=== PATIENT | female | born 1995 | race African-American/Black ===

== ENCOUNTER 2017-06-14 18:39 | Inpatient (IN) | payer MEDICAID ==
[~2017-06-14] VITALS: Ht 162.6 cm; Wt 103.9 kg
--- NOTE | ~2017-06-14 | CN ---
PATIENT NAME:QUENTIN VAUGHN MEDICAL RECORD: [id number] : [birth year] LOCATION:D.MS [facility]223Emerita ADMIT DATE: 06/15/17 ACCOUNT: [id number] CONSULTING PHYSICIAN: LYNN CHERRY MD REFERRING PHYSICIAN: IRENE DOVER MD DATE OF CONSULTATION: 06/15/2017 HISTORY OF PRESENT ILLNESS: A 21-year-old female with a history of lupus, transferred from outside facility for higher level of care. She is status post laparoscopic cholecystectomy. She underwent an outside hospital CTA, which was negative on 06/06/2017. She has had a fairly classic pleuritic chest pain with deep inspiration, pain with lying on her back, and has been tachycardic as well. We are asked to see her concerning her cardiovascular status. PAST MEDICAL HISTORY: Includes; 1. Lupus. 2. Recent cholecystectomy. SOCIAL HISTORY: Works as a nurse. She is a nonsmoker. No illicit drug use. ALLERGIES: None known. PHYSICAL EXAMINATION: GENERAL: Pleasant female, in some distress. VITAL SIGNS: Currently, pulse 117, blood pressure 133/85. HEENT: Normocephalic, atraumatic. NECK: No bruits are noted. HEART: Regular. I think there is one component of rub heard best at the point of maximal impulse. LUNGS: Decreased air excursion. ABDOMEN: Soft, nontender. EXTREMITIES: Pulses 2+. No edema. DIAGNOSTIC DATA: Echocardiographic study reviewed. This shows normal LV function, no significant pericardial effusion. 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 No evidence of pericardial effusion. She has been noted to have pleural effusion. We will give a low-dose Toradol renal adjusted given her mildly elevated creatinine. Further recommendations based on above. TRANSINT:[id number] Voice Confirmation ID: [id number] DOCUMENT ID: [id number] LYNN CHERRY MD at 0804 CC: [id number] DICTATION DATE: 06/15/17 164 SERVICE DESK MANAGER: 06/15/171911 ADM IN [facility] [address] [place] [address]
--- NOTE | ~2017-06-14 | CN ---
PATIENT NAME:QUENTIN VAUGHN MEDICAL RECORD: [id number] : 93 LOCATION:D.MS Casey2225 ADMIT DATE: 06/15/17 ACCOUNT: [id number] CONSULTING PHYSICIAN: CARMEN CHACKO MD REFERRING PHYSICIAN: IRENE DOVER MD DATE OF CONSULTATION: 06/15/2017 CONSULT REQUESTING PHYSICIAN: Dr. Dover. REASON FOR CONSULTATION: Acute hypoxic respiratory failure, questionable PE with elevated D-dimer. HISTORY OF PRESENT ILLNESS: Ms. Vaughn is a 21-year-old -B[place]ut[place] female. She underwent a laparoscopic cholecystectomy at [facility]. She was readmitted with shortness of breath and fever and pleuritic type of chest pain. She was treated with IV antibiotics. The patient was having CTA over there, which did not show any pulmonary embolism. The repeat D-dimer is about 20 over here. She is still complaining of shortness of breath and pleuritic type of chest pain mainly on the left side radiating to her back. There are no night sweats and the patient is feeling very weak and lethargic. REVIEW OF SYSTEMS: As in history of present illness. PAST MEDICAL HISTORY: 1. Questionable SLE. 2. Gastroesophageal reflux disease. 3. History of pneumonia. 4. History of blackout in the past. PAST SURGICAL HISTORY: 1. Cholecystectomy. 2. Exploratory laparotomy. ALLERGIES: No known drug allergies. MEDICATIONS: Smart Wire Grid is reviewed. PERSONAL SOCIAL HISTORY: The patient is a nonsmoker, nondrinker. FAMILY HISTORY: Significant for cardiovascular disease and diabetes. PHYSICAL EXAMINATION: GENERAL: Now, the patient sitting in bed. She is complaining of pain. VITAL SIGNS: The blood pressure is 133/85, pulse is 117, respiration is 20, temperature is 101.7, and SpO2 is 91% on 2 liters nasal cannula. HEENT: Conjunctivae are pink. Sclerae not icteric. NECK: Neck is supple. No JVD. CHEST: There are bilateral crackles. No wheezing. HEART: Rate and rhythm regular. Normal sound. No murmur. ABDOMEN: Abdomen is soft, tender on deep palpation. No guarding, no rigidity. RECTAL: Deferred. EXTREMITIES: No cyanosis, no clubbing, and no pedal edema. LABORATORY DATA: CBC: WBC 10.4, hemoglobin 8.5, hematocrit 26.6, and the platelet count 359. Chemistry: Sodium 133, potassium 3.8, BUN is 11, CONSULT REPORT [id number] QUENTIN VAUGHN creatinine 1.7, and glucose 97. ABG; the pH is 7.41, pCO2 of 48.7, the pO2 is 103, bicarbonate is 31. CHEST RADIOGRAPH: There is bilateral infiltrate. There is cardiomegaly. There are increased interstitial markings, possible interstitial edema. There are bilateral small pleural effusions. IMPRESSION: 1. Acute hypoxic respiratory failure, elevated D-dimer, rule out pulmonary embolism. 2. Bilateral small pleural effusion, possible parapneumonic. 3. Bilateral lower lobe infiltrates, most likely hospital-acquired pneumonia with the patient's recent hospitalization. 4. Gastroesophageal reflux disease. 5. Status post laparoscopic cholecystectomy. 6. Acute kidney injury, possible acute tubular necrosis. 7. History of SLE. 8. Anemia, possible blood loss. RECOMMENDATION: 1. Continue vancomycin and Zosyn. I will add Levaquin to cover for Gram-negative keila and hospital-acquired pneumonia. 2. Start on heparin drip. 3. Check the CTA of the chest, central line. Dr. Dougherty has been consulted. 4. Pain control. 5. Followup labs and chest radiograph. Discussed with the family and CPO. The critical care time 45 minutes. TRANSINT:[id number] Voice Confirmation ID: [id number] DOCUMENT ID: [id number] CARMEN CHACKO MD at 1208 CC: [id number] DICTATION DATE: 06/15/17 1520 BUCKLE ATTACHING MACHINE OPERATOR: 06/15/17 1621 DIS IN 06/21/17 [facility] [address] [place] [address]
--- NOTE | ~2017-06-14 | EC ---
PATIENT:QUENTIN VAUGHN DATE OF SERVICE: 06/15/17 SEX: F MEDICAL RECORD: [id number] DATE OF : [birth year] LOCATION:D.MS Casey222 AGE OF PATIENT: 21 ADMISSION DATE: 06/15/17 REFERRING PHYSICIAN: INTERPRETING PHYSICIAN: ZAHIDA DUONG MD ECHOCARDIOGRAM REPORT ECHO CHARGES 5 ECHO LIMITED Date: 06/16 CLINICAL DIAGNOSIS: PERICARDIAL EFFUSION ECHOCARDIOGRAPHIC MEASUREMENTS (adult normal given) AC root (d.<3.7cm) 0 cm LV Septum d (<1.2 cm> 0 cm Valve Excursion 0 cm LV Septum (systole) 0 cm Left Atria (s.<4.0cm> 0 cm LVPW d(<1.2cm) 0 cm RV (d.<2.3cm) 0 cm LVPW (sytole) 0 cm LV diastole(<5.6CM) 0 cm MV E-F(>70mm/sec) 0 cm LV systole 0 cm LVOT Diameter 0 cm MV exc.(>10mm) 0 cm Est.ejection fraction (50-75%) % DOPPLER: LVIT 0 cm/sec A 0 cm/sec E 0 cm/sec LA 0 cm/sec RVSP 0 mmHg LVOT 0 cm/sec AOP1/2T 0 m/s Asc. Ao 0 cm/sec RVOT 0 cm/sec RA 0 cm/sec PA 0 cm/sec AV Gradient Peak 0 mmHg AV Mean 0 mmHg AV Area 0 cm MV Gradient Peak 0 mmHg MV Mean 0 mmHg MV Area 0 cm COMMENTS: LIMITED STUDY (2-D ONLY FOR EFFUSION) COMPLETE ECHO DONE ON 06/15/17 Safety Patrol Officer: 1 BETH KEEN Piece Dyer: 1 Dr. Duong TAPE# PACS Pericardial Effusion Y DATE OF SERVICE: PROCEDURE: Limited echocardiogram to evaluate pericardial effusion. Small pericardial effusion is present, unchanged from previous echo. No hemodynamic compromise with this. TRANSINT:[id number] Voice Confirmation ID: [id number] DOCUMENT ID: [id number] ECHOCARDIOGRAM REPORT [id number] QUENTIN VAUGHN JEFFREY MD at 1629 CC: [id number] DICTATION DATE: 06/17/17 0841 VALVE MECHANIC: 06/17/17 1151 ADM IN [facility] [address] [place] [place] [address]
--- NOTE | ~2017-06-14 | EC ---
PATIENT:QUENTIN VAUGHN DATE OF SERVICE: 06/15/17 SEX: F MEDICAL RECORD: [id number] DATE OF : [birth year] LOCATION:D.MS [place] AGE OF PATIENT: 21 ADMISSION DATE: 06/15/17 REFERRING PHYSICIAN: INTERPRETING PHYSICIAN: LYNN CHERRY MD ECHOCARDIOGRAM REPORT ECHO CHARGES 4 ECHO COMPLETE Date: 06/15 CLINICAL DIAGNOSIS: EFFUSION ECHOCARDIOGRAPHIC MEASUREMENTS (adult normal given) AC root (d.<3.7cm) 3.9 cm LV Septum d (<1.2 cm> 1.7 cm Valve Excursion 2.2 cm LV Septum (systole) 2.4 cm Left Atria (s.<4.0cm> 2.9 cm LVPW d(<1.2cm) 1.9 cm RV (d.<2.3cm) 3.9 cm LVPW (sytole) 2.5 cm LV diastole(<5.6CM) 4.9 cm MV E-F(>70mm/sec) cm LV systole 3.3 cm LVOT Diameter 2.0 cm MV exc.(>10mm) 1.5 cm Est.ejection fraction (50-75%) % DOPPLER: LVIT cm/sec A cm/sec E 111 cm/sec LA cm/sec RVSP 35 mmHg LVOT 140 cm/sec AOP1/2T m/s Asc. Ao 178 cm/sec RVOT 123 cm/sec RA cm/sec PA 171 cm/sec AV Gradient Peak 12.74mmHg AV Mean 7.02 mmHg AV Area 2.9 cm MV Gradient Peak 9.45 mmHg MV Mean 4.51 mmHg MV Area cm COMMENTS: Produce Department Supervisor: 2 VILMA CRABTREE [facility] Advanced Practice Nurse: 3 Dr. Melo TAPE# PACS Pericardial Effusion N DATE OF SERVICE: 06/15/2017 Adequate 2D echo, color-flow and spectral Doppler, and M-Mode. Mild LVH. LV internal dimensions are normal. Wall motion is normal. EF is greater than or equal to 55%. Aortic valve is tricuspid. No evidence of stenosis by Doppler interrogation. Left atrium is normal 3.9 cm. Mitral valve shows no prolapse. Trace MR. Right-sided chambers normal. Trace TR. TRANSINT:[id number] Voice Confirmation ID: [id number] DOCUMENT ID: [id number] ECHOCARDIOGRAM REPORT [id number] JOHANA,QUENTIN LYNN CHERRY MD at 0804 CC: [id number] DICTATION DATE: 06/15/17 1647 ICE CREAM MIXER: 06/15/17 191 ADM IN [facility] [address] [place] [id number]
--- NOTE | ~2017-06-14 | HEMODYNAMI ---
PATIENT:QUENTIN VAUGHN MEDICAL RECORD: [id number] : 93 LOCATION:[facility] D.231 ADMISSION DATE: 06/15/17 Generatedon:06/16/201720:37 Patient name: QUENTIN VAUGHN Patient #: [id number] SSN: DO B: 1995 Date of study: 06/16/2017 Page: Of Hemodynamic Procedure Report Patient Data Patient Demographics Procedure consent was obtained First Name: QUENTIN Gender: Female Last Name: JOHANA : 1995 Patient #: [id number] Age: 21 year(s) Race: Black Additional ID: [id number] Contact details Address: [address] [place] [address] State: [place] City: [place] Zip code: [address] Admission Admission Data Admission Date: 06/15/2017 Admission Time: 3:35 Room #: .2312 Procedure Procedure Types Cath Procedure Peripheral Cath Diagnostic Procedure Venography IVC/SVC Inferior Venacava Filter Procedure Description Procedure Date Procedure Date: 06/16/2017 Procedure Start Time: 19:46 Procedure Staff Name Function Francisco Farmer MD Performing Physician Derrell Ivan RT Monitor Karely Deluan RT Scrub Roseline Thompson RN Nurse Procedure Data Cath Procedure Fluoroscopy Diagnostic fluoroscopy Total fluoroscopy Time: 3.7 time: 3.7 min min Diagnostic fluoroscopy Total fluoroscopy dose: 466 dose: 466 mGy mGy Contrast Material Contrast Material Type Amount (ml) Isovue 300 10 Diagnostic catheters Device Type Used For End Catheter Placement Merit ULTRA BOLUS FLUSH 5Fr 65CM catheter ([id number]) Procedure Medications Medication Administration Route Dosage Fentanyl I.V. 50 mcg Versed I.V. 2 mg Oxygen etCO2 Nasal cannula 4 l/min Lidocaine 1% added to field 20 Heparin Flush Bag 3 bags (1000units/500ml NS) Fentanyl I.V. 50 mcg Hemodynamics Rest Heart Rate: 112 (bpm) Snapshots Pre Cath Intra NCS Post Cath Vital Signs Time Heart Resp SPO2 etCO2 NIBP (mmHg) Rhythm Pain Status Sedation Rate (ipm) (%) (mmHg) Level (bpm) 19:38:00 21 130/109(117) NSR 0 (11) , No 9(A) pain 19:42:16 111 30 98 18.8 144/97(118) ST 0 (11) , No 9(A) pain 19:46:36 113 19 98 11.3 143/94(116) ST 0 (11) , No 9(A) pain 19:50:56 113 25 98 15 132/88(107) ST 0 (11) , No 8(A) pain 19:55:14 108 29 98 14.3 135/89(105) ST 2 (11) , 8(A) Uncomfortable 19:59:32 110 29 98 12 134/87(100) ST 0 (11) , No 8(A) pain 20:03:50 109 26 97 16.5 135/89(108) ST 0 (11) , No 8(A) pain 20:08:08 107 30 98 17.3 132/91(109) ST 0 (11) , No 8(A) pain 20:12:22 104 28 98 18 136/95(111) ST 0 (11) , No 8(A) pain 20:16:44 114 28 94 19.5 138/87(111) ST 0 (11) , No 8(A) pain 20:21:02 106 34 97 14.3 140/92(112) ST 0 (11) , No 8(A) pain 20:25:23 110 24 96 9 136/90(109) ST 0 (11) , No 8(A) pain 20:29:41 107 23 96 1.5 138/93(114) ST 0 (11) , No 8(A) pain 20:33:59 104 30 29.3 141/92(112) ST 0 (11) , No 8(A) pain Medications Time Medication Route Dose Verified Delivered Reason Notes Effe ctiveness by by 19:48:38 Fentanyl I.V. 50 mcg Jay Albaraod RN sedation intermittently MD @ 19:53:43 19:48:55 Versed I.V. 2 mg Jay Albarado RN sedation intermittently MD @ 19:53:41 19:49:12 Oxygen etCO2 4l/min Francisco Dukes Per Nasal Jay Farmer RN protocol cannula 19:50:05 Lidocaine 1% added 20ml Francisco Singh Per to vial Marleny Farmer MD protocol field 19:50:27 Heparin Flush 3 bags Francisco Singh Per Bag Marleny Farmer MD protocol (1000units/500ml NS) 19:55:35 Fentanyl I.V. 50 mcg Francisco Dukes for Dozi ng Jay Farmer RN sedation intermittently @ 20:01:26 Procedure Log Time Note 19:25:47 Derrell Wolfesaima RT (R) (CV) sent for patient. Start room use. 19:25:49 Time tracking: Regular hours (M-F 7:00 - 5:00) 19:25:55 Plan of Care:Hemodynamics will remain stable., Cardiac rhythm will remain stable., Comfort level will be maintained., Respiratory function will remain adequate., Patient/ family verbilizes understanding of procedure., Procedure tolerated without complication., Recovers from procedure without complications.. 19:26:06 Use device set IR Diagnostic 19:26:07 Tegaderm 4 x 4 (1626W) opened to sterile field. 19:26:07 Sterile Angiographic Pack opened to sterile field. 19:26:08 Bag Decanter (2001S) opened to sterile field. 19:26:09 ACIST Hand Control (88293) opened to sterile field. 19:26:09 ACIST Syringe (10856) opened to sterile field. 19:26:10 ACIST Manifold (69242) opened to sterile field. 19:26:17 Patient received from ICU to IR Alert and oriented. Tansferred to table in Supine position. 19:26:19 Correct patient and procedure confirmed by team. 19:26:21 Signed procedure consent form obtained from patient. 19:26:22 ECG and BP/O2 sat monitors applied to patient. 19:26:23 Full Disclosure recording started 19:26:24 - 19:26:29 H&P Date Dictated: 06/16/2017 Within 30 days and on chart.. 19:26:30 Pre-procedure instructions explained to patient. 19:26:30 Pre-op teaching completed and patient verbalized understanding. 19:26:32 Family in waiting room. 19:26:36 Patient NPO since Breakfast. 19:26:38 Is the patient allergic to Iodine/contrast media? No. 19:26:43 Is patient on blood thinner?No 19:26:44 Patient diabetic? No. 19:26:46 - 19:26:47 ----Pre-sedation anethsthesia assessment.---- 19:26:50 Previous problem with sedation/anesthesia? Yes ? 19:26:52 Snore? Yes 19:26:54 Sleep apnea? No 19:26:55 Deviated septum? No 19:26:56 Opens mouth fully? Yes 19:26:58 Sticks out tongue? Yes 19:27:01 Airway obstruction? No ? 19:27:08 Dentures? No ? 19:27:15 Patient pain scale 0/10 no pain. 19:27:21 IV patent on arrival in right IJ with 0.9% NaCl at [facility]. 19:27:22 Sharps counted by scrub and verified by R.N. 19:27:23 Alarms reviewed by R. N. 19:27:26 Right groin area was prepped with chlora-prep and draped in sterile fashion 19:36:40 Vital chart was started 19:40:12 Baseline sample Acquired. 19:42:59 --------ALL STOP TIME OUT------ 19:43:00 Final Timeout: patient, procedure, and site verified with staff and physician. All members of the team are in agreement. 19:43:11 Right groin site verified by team. 19:43:16 Sedation plan: IV Moderate Sedation Medication:Versed, Fentanyl 19:46:01 Procedure started. 19:46:13 Local anesthetic to right femoral vein with Lidocaine 1% by Francisco Farmer MD.INITIAL ACCESS ONLY 19:46:17 Micropuncture VSI 4FR kit opened to sterile field. 19:46:18 DOC .035 wire (N34729) opened to sterile field. 19:46:18 FILTER Bowman Vena Cava (FE948H) opened to sterile field. 19:46:19 STOPCOCK 3-Way Large Bore (A97770) opened to sterile field. 19:46:19 TUBING Contrast Injection High Pressure (KYQ133E) opened to sterile field. 19:46:20 TUBING Contrast Injection High Pressure (CIY360F) opened to sterile field. 19:47:59 SHEATH 6FR [place] (IYR227) opened to sterile field. 19:48:38 Fentanyl 50 mcg I.V. was administered by Roseline Thompson RN; for sedation; 19:48:40 A [employer] ULTRA BOLUS FLUSH 5Fr 65CM catheter ([id number]) was advanced over the wire and used for . 19:48:55 Versed 2 mg I.V. was administered by Roseline Thompson RN; for sedation; 19:49:12 Oxygen 4l/min etCO2 Nasal cannula was administered by Roseline Thompson RN; Per protocol; 19:50:05 Lidocaine 1% 20ml vial added to field was administered by Francisco Farmer MD; Per protocol; 19:50:27 Heparin Flush Bag (1000units/500ml NS) 3 bags was administered by Francisco Farmer MD; Per protocol; 19:53:41 Effectiveness of Versed delivered @ 19:48:55 is: Dozing intermittently 19:53:43 Effectiveness of Fentanyl delivered @ 19:48:38 is: Dozing intermittentl y 19:55:35 Fentanyl 50 mcg I.V. was administered by Roseline Thompson RN; for sedation; 20:01:26 Effectiveness of Fentanyl delivered @ 19:55:35 is: Dozing intermittentl y 20:06:12 GLIDE WIRE ANGLE 180cm (WJ9319) opened to sterile field. 20:08:58 TORQUE DEVICE PLASTIC .038 ( TD01) opened to sterile field. 20:19:16 AMPLATZ Super stiff 180cm wire ([id number]) opened to sterile field. 20:22:52 Bowman Femoral IVC filter was placed below renal veins. 20:23:09 Procedure ended.(Physican Out) 20:23:35 Fluoroscopy time 03.70 minutes. 20:23:40 Fluoroscopy dose: 466 mGy 20:23:40 Flurop Dose total: 466 20:23:46 Contrast amount:Isovue 300 10ml. 20:23:47 Sharps counted by scrub and verified by R.N. 20:23:55 Insertion/operative site no bleeding no hematoma. 20:23:59 Post-op/insertion site Right Femoral vein dressed using a 4 x 4 and Tegaderm. 20:24:07 Post right femoral vein:stable 20:36:37 Post procedure instruction explained to patient.Patient verbalizes understanding. 20:36:38 Procedure and supply charges have been captured, reviewed, submitted an d are correct. 20:36:47 Report given to ICU. 20:36:51 Patient transfered to ICU with Bed. 20:37:22 Vital chart was stopped Device Usage Item Name Manufacture Quantity Catalog Number Hospital Part Current W[place] nimal Lot# / Charge Number Stock Stock Serial# Code Tegaderm 4 x 4 3M 1 1626W 313356 [id number] [id number] 5 (1626W) Sterile Cardinal 1 [id number] 763488 627244 5 Angiographic Health Pack Bag Decanter Microtek 1 2002S 856607 96454 424152 5 (2002S) Medical Inc. ACIST Hand Acist 1 58780 589591 453762 107180 5 Control Medical (15762) Systems Inc ACIST Syringe Acist 1 63980 978643 833076 065506 20 (36574) Medical Systems Inc ACIST Manifold Acist 1 94250 337087 780823 303961 5 (25396) Medical Systems Inc Micropuncture VSI VASCULAR 1 7266V 650493 049068 5 VSI 4FR kit SOLUTIONS DOC .035 wire Cook Medical 1 K27117 528589 159783 5 (J78637) FILTER Isa Bard 1 BK737H 788827 873963 431152 5 Vena Cava (WR568D) STOPCOCK 3-Way [employer] Medical 1 S82666 044768 0638 606044 5 [id number] Large Bore (P40000) TUBING Merit 2 HXA942A 183570 677620 433016 5 Contrast Medical Injection High Pressure (IEV314M) SHEATH 6FR Terumo 1 MPJ501 420768 288889 713566 40 [place] (LVF316) Merit ULTRA Merit 1 [id number] 475201 707501 5 BOLUS FLUSH Medical 5Fr 65CM catheter ([id number]) GLIDE WIRE Terumo 1 UL2956 223701 640064 216938 5 ANGLE 180cm (EV6028) TORQUE DEVICE Marmaduke 1 TD01 991597 124763 038266 5 PLASTIC .038 ( Scientific TD01) AMPLATZ Super [employer]uke 1 [id number] 507397 879848 5 [id number] stiff 180cm Scientific wire ([id number]) Signature Audit [place] Stage Time Signature Unsigned Intra-Procedure 06/16/2017 Derrell 8:37:19 PM Marzena RT (R) (CV) Signatures Monitor : Derrell Signature : Marzena RT Date : Time : [address] [address]
[2017-06-15] MEDS ORDERED: ACETAMINOPHEN325 MG PO (03:54)
[2017-06-15 04:18] VITALS: BP 152/88; BMI 36.1
[2017-06-15 08:18] LABS: BASOPHILS 0.2 % (0-2); EOSINOPHILS 0.1 % (0-7); HEMATOCRIT 26.6 % (36.0-48.0); HEMOGLOBIN 8.5 g/dL (12-16); IMMATURE GRANULOCYTES 0.2 % (0-5); LYMPHOCYTES 8.9 % (15-50); MCH 26.2 pg (26.0-34.0); MCV 81.8 fL (80.0-100.0); MEAN PLATELET VOLUME 8.5 fL (7.4-10.4); MONOCYTES 9.8 % (2-11); NEUTROPHILS 80.8 % (40-80); PLATELET COUNT 359 10x3/uL (130-400); RBC 3.25 10x6/uL (4.00-5.40); RDW 13.8 % (11.5-14.5); WBC 10.5 10x3/uL (4.8-10.8)
[2017-06-15 08:37] LABS: ALBUMIN 2.3 g/dL (3.4-5.0); ALKALINE PHOSPHATASE 46 U/L (46-116); ALT (SGPT) 12 U/L (10-68); BILIRUBIN - TOTAL 0.71 mg/dL (0.2-1.3); CALC OSMOLALITY 264 mosm/kg (275-300); CALCIUM 9.2 mg/dL (8.5-10.1); CARBON DIOXIDE 26.4 mmol/L (21.0-32.0); CHLORIDE - SERUM 95 mmol/L (98-107); CKMB 0.1 U/L (0.0-3.6); CREATINE KINASE 138 UL (21-215); CREATININE - SERUM 1.7 mg/dL (0.6-1.3); GLUCOSE 97 mg/dL (74-106); POTASSIUM - SERUM 3.8 mmol/L (3.5-5.1); PROTEIN - SERUM 8.1 g/dL (6.4-8.2); SODIUM 133 mmol/L (136-145); UREA NITROGEN 11 mg/dL (7-18); eGFR NON AFRICAN AMERICAN 39 mL/min (90-120)
[2017-06-15 08:41] LABS: TROPONIN-I < 0.017 ng/mL (0.000-0.060)
[2017-06-15 09:05] LABS: APPEARANCE CLEAR (CLEAR); BILIRUBIN NEGATIVE (NEGATIVE); COLOR YELLOW (YELLOW); GLUCOSE NEGATIVE (NEGATIVE); KETONE LARGE mg/dL (NEGATIVE); NITRITE NEGATIVE (NEGATIVE); PROTEIN 3+ mg/dL (NEGATIVE); SPECIFIC GRAVITY 1.015 (1.005-1.020); UROBILINOGEN NORMAL (NORMAL)
[2017-06-15 09:06] LABS: BACTERIA FEW /hpf (NONE SEEN); EPITHELIAL CELLS RARE /hpf (0-5); GRANULAR CAST RARE /lpf (NONE SEEN); HYALINE CAST RARE /lpf (NONE SEEN); RED CELLS - URINE OCC /hpf (0-5); WHITE CELLS - URINE 0-5 /hpf (0-5)
[2017-06-15 09:19] VITALS: BP 132/90
[2017-06-15 13:03] VITALS: BP 133/85
[2017-06-15 17:18] VITALS: BP 146/94
[2017-06-15 19:50] LABS: CKMB 0.1 U/L (0.0-3.6); CREATINE KINASE 146 UL (21-215); TROPONIN-I 0.017 ng/mL (0.000-0.060)
[2017-06-15 20:02] VITALS: BP 143/98
[2017-06-15 21:39] LABS: HEMOGLOBIN 8.3 g/dL (12-16); MCH 26.3 pg (26.0-34.0); MCHC 31.9 g/dL (31.0-37.0); MCV 82.3 fL (80.0-100.0); MEAN PLATELET VOLUME 8.5 fL (7.4-10.4); RBC 3.16 10x6/uL (4.00-5.40); RDW 13.8 % (11.5-14.5)
[2017-06-15 21:46] LABS: INR 1.38 (0.85-1.17); PROTIME 16.5 SECONDS (11.6-15.0)
[2017-06-15 23:50] VITALS: BP 142/62
[2017-06-16] VITALS (23 sets, daily range): BP systolic 114–153; BP diastolic 77–107
[2017-06-16 04:16] LABS: BASOPHILS 0.1 % (0-2); EOSINOPHILS 0.1 % (0-7); HEMATOCRIT 24.8 % (36.0-48.0); HEMOGLOBIN 7.9 g/dL (12-16); IMMATURE GRANULOCYTES 0.4 % (0-5); LYMPHOCYTES 3.5 % (15-50); MCHC 31.9 g/dL (31.0-37.0); MCV 81.6 fL (80.0-100.0); MEAN PLATELET VOLUME 8.6 fL (7.4-10.4); NEUTROPHILS 90.9 % (40-80); PLATELET COUNT 353 10x3/uL (130-400); RBC 3.04 10x6/uL (4.00-5.40); RDW 13.9 % (11.5-14.5); WBC 11.3 10x3/uL (4.8-10.8)
[2017-06-16 05:25] LABS: ALBUMIN 2.1 g/dL (3.4-5.0); ALKALINE PHOSPHATASE 48 U/L (46-116); ALT (SGPT) 12 U/L (10-68); CALC OSMOLALITY 279 mosm/kg (275-300); CALCIUM 8.4 mg/dL (8.5-10.1); CARBON DIOXIDE 28.8 mmol/L (21.0-32.0); CHLORIDE - SERUM 99 mmol/L (98-107); CKMB 0.7 U/L (0.0-3.6); CREATINE KINASE 117 UL (21-215); CREATININE - SERUM 1.7 mg/dL (0.6-1.3); GLUCOSE 127 mg/dL (74-106); POTASSIUM - SERUM 4.1 mmol/L (3.5-5.1); PROTEIN - SERUM 7.1 g/dL (6.4-8.2); SODIUM 139 mmol/L (136-145); TROPONIN-I < 0.017 ng/mL (0.000-0.060); UREA NITROGEN 12 mg/dL (7-18); eGFR NON AFRICAN AMERICAN 39 mL/min (90-120)
[2017-06-16 14:26] LABS: ANA REFLEX - ANTICHROMATIN ABS >8.0 AI (0.0-0.9); ANA REFLEX - CENTROMERE B ABS <0.2 AI (0.0-0.9); ANA REFLEX - DBL STRANDED DNA 27 IU/mL (0-9); ANA REFLEX - DIRECT Positive (Negative); ANA REFLEX - JO-1 AB <0.2 AI (0.0-0.9); ANA REFLEX - RNP ANTIBODIES >8.0 AI (0.0-0.9); ANA REFLEX - SCL-70 0.3 AI (0.0-0.9); ANA REFLEX - SJOGRENS AB SSA 2.4 AI (0.0-0.9); ANA REFLEX - SJOGRENS AB SSB <0.2 AI (0.0-0.9); ANA REFLEX - SMITH AB 4.2 AI (0.0-0.9)
[2017-06-17] VITALS (27 sets, daily range): BP systolic 130–160; BP diastolic 82–124
[2017-06-17 00:37] LABS: HEMATOCRIT 29.1 % (36.0-48.0); HEMOGLOBIN 9.5 g/dL (12-16); MCHC 32.6 g/dL (31.0-37.0); MCV 79.7 fL (80.0-100.0); RBC 3.65 10x6/uL (4.00-5.40); RDW 14.5 % (11.5-14.5); WBC 15.3 10x3/uL (4.8-10.8)
[2017-06-17 05:44] LABS: BASOPHILS 0.1 % (0-2); EOSINOPHILS 0 % (0-7); HEMATOCRIT 31.5 % (36.0-48.0); HEMOGLOBIN 10.4 g/dL (12-16); IMMATURE GRANULOCYTES 0.4 % (0-5); MCH 26.3 pg (26.0-34.0); MCV 79.5 fL (80.0-100.0); MEAN PLATELET VOLUME 8.9 fL (7.4-10.4); MONOCYTES 5.4 % (2-11); NEUTROPHILS 90.1 % (40-80); PLATELET COUNT 442 10x3/uL (130-400); RBC 3.96 10x6/uL (4.00-5.40); RDW 14.8 % (11.5-14.5); WBC 17.2 10x3/uL (4.8-10.8)
[2017-06-17 06:09] LABS: ALBUMIN 1.9 g/dL (3.4-5.0); ANION GAP 12.2 mmol/L (8-16); BILIRUBIN - TOTAL 0.9 mg/dL (0.2-1.3); CARBON DIOXIDE 28.6 mmol/L (21.0-32.0); CREATININE - SERUM 1.7 mg/dL (0.6-1.3); POTASSIUM - SERUM 3.8 mmol/L (3.5-5.1); PROTEIN - SERUM 7.6 g/dL (6.4-8.2)
[2017-06-18] VITALS (24 sets, daily range): BP systolic 142–187; BP diastolic 97–127
[2017-06-18 00:46] LABS: HEMOGLOBIN 9.8 g/dL (12-16); MCH 26.8 pg (26.0-34.0); MCHC 33.8 g/dL (31.0-37.0); MCV 79.5 fL (80.0-100.0); MEAN PLATELET VOLUME 8.7 fL (7.4-10.4); RBC 3.65 10x6/uL (4.00-5.40); RDW 15.1 % (11.5-14.5); WBC 13.3 10x3/uL (4.8-10.8)
[2017-06-18 05:05] LABS: BASOPHILS 0.2 % (0-2); EOSINOPHILS 0 % (0-7); HEMATOCRIT 29.6 % (36.0-48.0); HEMOGLOBIN 9.8 g/dL (12-16); IMMATURE GRANULOCYTES 0.7 % (0-5); LYMPHOCYTES 5.4 % (15-50); MCH 26.5 pg (26.0-34.0); MCHC 33.1 g/dL (31.0-37.0); MEAN PLATELET VOLUME 8.8 fL (7.4-10.4); MONOCYTES 6.1 % (2-11); NEUTROPHILS 87.6 % (40-80); PLATELET COUNT 474 10x3/uL (130-400); RDW 15.2 % (11.5-14.5); WBC 12.1 10x3/uL (4.8-10.8)
[2017-06-18 05:32] LABS: ALBUMIN 1.8 g/dL (3.4-5.0); ANION GAP 10.9 mmol/L (8-16); BILIRUBIN - TOTAL 0.6 mg/dL (0.2-1.3); CALCIUM 8.7 mg/dL (8.5-10.1); CARBON DIOXIDE 27.6 mmol/L (21.0-32.0); CREATININE - SERUM 1.6 mg/dL (0.6-1.3); POTASSIUM - SERUM 3.5 mmol/L (3.5-5.1)
[2017-06-19] VITALS (13 sets, daily range): BP systolic 148–178; BP diastolic 93–118; BMI 39.3
[2017-06-19 03:43] LABS: BASOPHILS 0.1 % (0-2); EOSINOPHILS 0 % (0-7); HEMATOCRIT 30.7 % (36.0-48.0); HEMOGLOBIN 9.9 g/dL (12-16); IMMATURE GRANULOCYTES 1.6 % (0-5); LYMPHOCYTES 7.4 % (15-50); MCH 26.2 pg (26.0-34.0); MCHC 32.2 g/dL (31.0-37.0); MCV 81.2 fL (80.0-100.0); MEAN PLATELET VOLUME 8.5 fL (7.4-10.4); MONOCYTES 9.8 % (2-11); NEUTROPHILS 81.1 % (40-80); PLATELET COUNT 446 10x3/uL (130-400); RBC 3.78 10x6/uL (4.00-5.40); RDW 15.6 % (11.5-14.5); WBC 10.5 10x3/uL (4.8-10.8)
[2017-06-19 04:19] LABS: ALBUMIN 1.9 g/dL (3.4-5.0); ANION GAP 11.6 mmol/L (8-16); BILIRUBIN - TOTAL 0.5 mg/dL (0.2-1.3); CALCIUM 8.9 mg/dL (8.5-10.1); CARBON DIOXIDE 26.5 mmol/L (21.0-32.0); CREATININE - SERUM 1.5 mg/dL (0.6-1.3); PROTEIN - SERUM 6.6 g/dL (6.4-8.2)
[2017-06-19 04:23] LABS: POTASSIUM - SERUM 4.1 mmol/L (3.5-5.1)
[2017-06-19 10:45] LABS: COMPLEMENT C4 14.1 mg/dL (17.4-52.2)
[2017-06-19 10:46] LABS: C-REACTIVE PROTEIN 12.7 mg/dL (0.0-0.9)
[2017-06-19 11:54] LABS: ERYTHROCYTE SEDIMENTATION RATE 16 mm/hr (0-20)
[2017-06-20 04:54] VITALS: BP 178/113
[2017-06-20 05:36] LABS: BASOPHILS 0.1 % (0-2); EOSINOPHILS 0 % (0-7); HEMATOCRIT 31.2 % (36.0-48.0); HEMOGLOBIN 10.1 g/dL (12-16); LYMPHOCYTES 9.9 % (15-50); MCH 26.4 pg (26.0-34.0); MCHC 32.4 g/dL (31.0-37.0); MCV 81.7 fL (80.0-100.0); MEAN PLATELET VOLUME 8.7 fL (7.4-10.4); MONOCYTES 10.4 % (2-11); NEUTROPHILS 73.6 % (40-80); PLATELET COUNT 512 10x3/uL (130-400); RBC 3.82 10x6/uL (4.00-5.40); RDW 15.7 % (11.5-14.5); WBC 10.9 10x3/uL (4.8-10.8)
[2017-06-20 05:45] LABS: ALBUMIN 2.1 g/dL (3.4-5.0); ANION GAP 12.2 mmol/L (8-16); BILIRUBIN - TOTAL 0.48 mg/dL (0.2-1.3); CALCIUM 8.8 mg/dL (8.5-10.1); CARBON DIOXIDE 26.1 mmol/L (21.0-32.0); CREATININE - SERUM 1.5 mg/dL (0.6-1.3); POTASSIUM - SERUM 4.3 mmol/L (3.5-5.1); PROTEIN - SERUM 6.3 g/dL (6.4-8.2)
[2017-06-20 08:21] LABS: FOLATE (FOLIC ACID) - SERUM 8.2 ng/mL (>3.0)
[2017-06-20 10:38] VITALS: BP 148/98
[2017-06-20 12:03] LABS: PATH REVIEW PERIPHERAL SMEAR REVIEWED
[2017-06-20 12:13] LABS: APPEARANCE CLEAR (CLEAR); BILIRUBIN NEGATIVE (NEGATIVE); COLOR YELLOW (YELLOW); GLUCOSE NEGATIVE (NEGATIVE); KETONE NEGATIVE (NEGATIVE); NITRITE NEGATIVE (NEGATIVE); PROTEIN NEGATIVE (NEGATIVE); SPECIFIC GRAVITY 1.015 (1.005-1.020); UROBILINOGEN NORMAL (NORMAL)
[2017-06-20 12:14] LABS: BACTERIA FEW /hpf (NONE SEEN); EPITHELIAL CELLS 0-5 /hpf (0-5); HYALINE CAST RARE /lpf (NONE SEEN); MUCUS <1+ /lpf (NONE SEEN); RED CELLS - URINE OCC /hpf (0-5); WHITE CELLS - URINE OCC /hpf (0-5)
[2017-06-20 15:00] VITALS: BP 149/109
[2017-06-20 18:17] VITALS: BP 159/93
[2017-06-20 20:00] VITALS: BP 158/60
[2017-06-21 04:00] VITALS: BP 156/101
[2017-06-21 08:29] LABS: BASOPHILS 0.1 % (0-2); EOSINOPHILS 0.2 % (0-7); HEMATOCRIT 32.8 % (36.0-48.0); HEMOGLOBIN 10.7 g/dL (12-16); IMMATURE GRANULOCYTES 10.4 % (0-5); LYMPHOCYTES 14.6 % (15-50); MCH 26.4 pg (26.0-34.0); MCHC 32.6 g/dL (31.0-37.0); MCV 80.8 fL (80.0-100.0); MEAN PLATELET VOLUME 8.4 fL (7.4-10.4); MONOCYTES 18.5 % (2-11); NEUTROPHILS 56.2 % (40-80); RBC 4.06 10x6/uL (4.00-5.40); RDW 15.5 % (11.5-14.5)
[2017-06-21 08:36] LABS: PLATELET COUNT 640 10x3/uL (130-400); WBC 14.2 10x3/uL (4.8-10.8)
[2017-06-21 08:57] LABS: ALBUMIN 2.2 g/dL (3.4-5.0); ANION GAP 12.6 mmol/L (8-16); BILIRUBIN - TOTAL 0.4 mg/dL (0.2-1.3); CARBON DIOXIDE 24.1 mmol/L (21.0-32.0); CREATININE - SERUM 1.4 mg/dL (0.6-1.3); POTASSIUM - SERUM 3.7 mmol/L (3.5-5.1); PROTEIN - SERUM 6.2 g/dL (6.4-8.2)
[2017-06-21 11:23] VITALS: Ht 162.6 cm; Wt 103.9 kg
[2017-06-21] MEDS ORDERED: NORVASC5 MG PO (13:29)
[2017-06-21] MEDS ORDERED: QUESTRAN LIG1 PACKET PO (13:30)
[2017-06-21] MEDS ORDERED: METOPROLOL TART50 MG PO (13:30)
[2017-06-21] MEDS ORDERED: LISINOPRIL10 MG PO (13:30)
[2017-06-21] MEDS ORDERED: PROTONIX40 MG PO (13:31)
[2017-06-21 13:32] VITALS: BP 132/93
[2017-06-21] MEDS ORDERED: STERAPRED DS 1010 MG PO (13:32)
[2017-06-21] MEDS ORDERED: LEVAQUIN500 MG PO (13:32)
[2017-06-21] MEDS ORDERED: CLEOCIN HCL300 MG PO (13:33)
[2017-06-21] MEDS ORDERED: PREDNISONE20 MG PO ×2 (13:38→13:43)
[2017-06-23 18:10] LABS: RESULT 1 Yeast isolated. (())
[2017-06-24 16:09] LABS: AEROBE ID Final report (())
== END 2017-06-21 17:42 | disposition home or self-care (01) | DRG 166 ==
LOC: D.MS 18:39 → D.ICU 06-16 15:51 → D.MS 06-19 17:56
PROVIDERS: Family Medicine; Internal Medicine Nephrology; Internal Medicine Pulmonary Disease
PROC: 02HV33Z Insertion of Infusion Device into Superior Vena Cava, Percutaneous Approach (ICD-10-PCS; principal; 2017-06-15)
PROC: 06H03DZ Insertion of Intraluminal Device into Inferior Vena Cava, Percutaneous Approach (ICD-10-PCS; 2017-06-16)
DX: J18.9 Pneumonia, unspecified organism (principal); J96.01 Acute respiratory failure with hypoxia; T80.219A Unspecified infection due to central venous catheter, initial encounter; J91.8 Pleural effusion in other conditions classified elsewhere; N17.9 Acute kidney failure, unspecified; E87.1 Hypo-osmolality and hyponatremia; I82.412 Acute embolism and thrombosis of left femoral vein; I82.442 Acute embolism and thrombosis of left tibial vein; I31.3 Pericardial effusion (noninflammatory); J90 Pleural effusion, not elsewhere classified; J98.11 Atelectasis; Y95 Nosocomial condition; B95.7 Other staphylococcus as the cause of diseases classified elsewhere; M35.9 Systemic involvement of connective tissue, unspecified; M32.9 Systemic lupus erythematosus, unspecified; D63.8 Anemia in other chronic diseases classified elsewhere; K21.9 Gastro-esophageal reflux disease without esophagitis; E86.0 Dehydration; R00.0 Tachycardia, unspecified; K59.00 Constipation, unspecified; R60.9 Edema, unspecified

== ENCOUNTER → 2018-03-14 12:20 | Outpatient (CLI) | payer OTHER ==
[2017-06-21 11:23] VITALS: BMI 39.3
[~2018-03-14 12:20] MED LIST: ACETAMINOPHEN325 MG PO; CLEOCIN HCL300 MG PO; LEVAQUIN500 MG PO; LISINOPRIL10 MG PO; METOPROLOL TART50 MG PO; NORVASC5 MG PO; PREDNISONE20 MG PO; PROTONIX40 MG PO; QUESTRAN LIG1 PACKET PO; STERAPRED DS 1010 MG PO
[2018-03-15 07:31] LABS: IMMUNOGLOBULIN A 247 mg/dL (87-352); IMMUNOGLOBULIN G 3361 mg/dL (700-1600); IMMUNOGLOBULIN M 142 mg/dL (26-217)
[2018-03-17 15:10] LABS: IMMUNOGLOBULIN E 24 IU/mL (0-100)
== END | disposition home or self-care (01) ==
LOC: D.RT 12:20
PROVIDERS: Internal Medicine Pulmonary Disease
DX: J90 Pleural effusion, not elsewhere classified (principal); R06.00 Dyspnea, unspecified

== ENCOUNTER → 2018-08-23 10:38 | Outpatient (CLI) | payer MEDICAID ==
[2017-06-21 11:23] VITALS: BMI 39.3
[2018-08-24 10:10] LABS: IMMUNOGLOBULIN A 267 mg/dL (87-352); IMMUNOGLOBULIN G 3126 mg/dL (700-1600); IMMUNOGLOBULIN M 116 mg/dL (26-217)
== END | disposition home or self-care (01) ==
LOC: D.RT 05-01 10:00 → D.CT 05-01 10:00 → D.LAB 05-01 10:00 → D.CT 05-01 11:30 → D.RT 06-14 14:00 → D.LAB 06-14 14:45 → D.CT 06-14 15:00 → D.RT 10:38
PROVIDERS: ATTEND Internal Medicine Pulmonary Disease
DX: R94.2 Abnormal results of pulmonary function studies (principal); R06.00 Dyspnea, unspecified; J18.9 Pneumonia, unspecified organism